=== PATIENT | male | born 1955 | race African-American/Black ===

== ENCOUNTER → 2016-10-18 | Outpatient (CLI) | payer OTHER | LOC: HYPER 06:55 | DX: I87.331 Chronic venous hypertension (idiopathic) with ulcer and inflammation of right lower extremity (principal); L97.811 Non-pressure chronic ulcer of other part of right lower leg limited to breakdown of skin; I10 Essential (primary) hypertension; I73.9 Peripheral vascular disease, unspecified; H54.41 Blindness, right eye, normal vision left eye; E11.622 Type 2 diabetes mellitus with other skin ulcer; I87.2 Venous insufficiency (chronic) (peripheral); Z79.4 Long term (current) use of insulin; Z79.84 Long term (current) use of oral hypoglycemic drugs ==

== ENCOUNTER → 2016-10-25 | Outpatient (CLI) | payer OTHER | LOC: HYPER 06:51 | DX: I87.331 Chronic venous hypertension (idiopathic) with ulcer and inflammation of right lower extremity (principal); L97.811 Non-pressure chronic ulcer of other part of right lower leg limited to breakdown of skin; E11.622 Type 2 diabetes mellitus with other skin ulcer; I87.2 Venous insufficiency (chronic) (peripheral); I70.238 Atherosclerosis of native arteries of right leg with ulceration of other part of lower leg; H54.41 Blindness, right eye, normal vision left eye; E11.51 Type 2 diabetes mellitus with diabetic peripheral angiopathy without gangrene; I10 Essential (primary) hypertension; Z79.4 Long term (current) use of insulin; Z79.84 Long term (current) use of oral hypoglycemic drugs ==

== ENCOUNTER → 2017-01-24 | Outpatient (CLI) | payer OTHER | LOC: HYPER 07:13 | DX: I87.333 Chronic venous hypertension (idiopathic) with ulcer and inflammation of bilateral lower extremity (principal); L97.821 Non-pressure chronic ulcer of other part of left lower leg limited to breakdown of skin; E11.622 Type 2 diabetes mellitus with other skin ulcer; L97.811 Non-pressure chronic ulcer of other part of right lower leg limited to breakdown of skin; I70.238 Atherosclerosis of native arteries of right leg with ulceration of other part of lower leg; I70.248 Atherosclerosis of native arteries of left leg with ulceration of other part of lower leg ==

== ENCOUNTER → 2017-02-07 | Outpatient (CLI) | payer OTHER | LOC: HYPER 07:05 | DX: I87.333 Chronic venous hypertension (idiopathic) with ulcer and inflammation of bilateral lower extremity (principal); L97.821 Non-pressure chronic ulcer of other part of left lower leg limited to breakdown of skin; L97.811 Non-pressure chronic ulcer of other part of right lower leg limited to breakdown of skin; E11.622 Type 2 diabetes mellitus with other skin ulcer; R60.0 Localized edema; I70.248 Atherosclerosis of native arteries of left leg with ulceration of other part of lower leg; I70.238 Atherosclerosis of native arteries of right leg with ulceration of other part of lower leg; H54.41 Blindness, right eye, normal vision left eye; Z68.41 Body mass index [BMI] 40.0-44.9, adult ==

== ENCOUNTER → 2017-02-16 | Outpatient (CLI) | payer OTHER | LOC: HYPER 02-14 10:20 | DX: I87.333 Chronic venous hypertension (idiopathic) with ulcer and inflammation of bilateral lower extremity (principal); L97.821 Non-pressure chronic ulcer of other part of left lower leg limited to breakdown of skin; L97.811 Non-pressure chronic ulcer of other part of right lower leg limited to breakdown of skin; E11.622 Type 2 diabetes mellitus with other skin ulcer; I70.248 Atherosclerosis of native arteries of left leg with ulceration of other part of lower leg; I70.238 Atherosclerosis of native arteries of right leg with ulceration of other part of lower leg ==

== ENCOUNTER → 2017-03-02 | Outpatient (CLI) | payer OTHER | LOC: HYPER 07:08 | DX: I87.333 Chronic venous hypertension (idiopathic) with ulcer and inflammation of bilateral lower extremity (principal); E11.622 Type 2 diabetes mellitus with other skin ulcer; L97.811 Non-pressure chronic ulcer of other part of right lower leg limited to breakdown of skin; L97.821 Non-pressure chronic ulcer of other part of left lower leg limited to breakdown of skin; R60.0 Localized edema; I70.239 Atherosclerosis of native arteries of right leg with ulceration of unspecified site; I70.249 Atherosclerosis of native arteries of left leg with ulceration of unspecified site ==

== ENCOUNTER → 2017-03-23 | Outpatient (CLI) | payer OTHER | LOC: HYPER 07:15 | DX: E11.622 Type 2 diabetes mellitus with other skin ulcer (principal); I87.333 Chronic venous hypertension (idiopathic) with ulcer and inflammation of bilateral lower extremity; I70.238 Atherosclerosis of native arteries of right leg with ulceration of other part of lower leg; I70.248 Atherosclerosis of native arteries of left leg with ulceration of other part of lower leg; L97.811 Non-pressure chronic ulcer of other part of right lower leg limited to breakdown of skin; L97.821 Non-pressure chronic ulcer of other part of left lower leg limited to breakdown of skin; R60.0 Localized edema; R60.9 Edema, unspecified ==

== ENCOUNTER → 2017-04-06 | Outpatient (CLI) | payer OTHER | LOC: HYPER 06:57 | DX: I87.332 Chronic venous hypertension (idiopathic) with ulcer and inflammation of left lower extremity (principal); E11.622 Type 2 diabetes mellitus with other skin ulcer; I70.248 Atherosclerosis of native arteries of left leg with ulceration of other part of lower leg; L97.821 Non-pressure chronic ulcer of other part of left lower leg limited to breakdown of skin; I87.2 Venous insufficiency (chronic) (peripheral); H54.41 Blindness, right eye, normal vision left eye; I10 Essential (primary) hypertension ==

== ENCOUNTER → 2017-05-04 | Outpatient (CLI) | payer OTHER | LOC: HYPER 07:04 | DX: E11.622 Type 2 diabetes mellitus with other skin ulcer (principal); L97.821 Non-pressure chronic ulcer of other part of left lower leg limited to breakdown of skin; L97.811 Non-pressure chronic ulcer of other part of right lower leg limited to breakdown of skin; I70.238 Atherosclerosis of native arteries of right leg with ulceration of other part of lower leg; I70.248 Atherosclerosis of native arteries of left leg with ulceration of other part of lower leg; I87.333 Chronic venous hypertension (idiopathic) with ulcer and inflammation of bilateral lower extremity; G89.29 Other chronic pain ==

== ENCOUNTER → 2017-05-18 | Outpatient (CLI) | payer OTHER | LOC: HYPER 07:02 | DX: I87.333 Chronic venous hypertension (idiopathic) with ulcer and inflammation of bilateral lower extremity (principal); L97.821 Non-pressure chronic ulcer of other part of left lower leg limited to breakdown of skin; L97.811 Non-pressure chronic ulcer of other part of right lower leg limited to breakdown of skin; E11.622 Type 2 diabetes mellitus with other skin ulcer; I70.248 Atherosclerosis of native arteries of left leg with ulceration of other part of lower leg; I70.238 Atherosclerosis of native arteries of right leg with ulceration of other part of lower leg; H54.41 Blindness, right eye, normal vision left eye ==

== ENCOUNTER → 2017-06-15 | Outpatient (CLI) | payer OTHER | LOC: HYPER 06-01 13:43 | DX: I87.333 Chronic venous hypertension (idiopathic) with ulcer and inflammation of bilateral lower extremity (principal); E11.622 Type 2 diabetes mellitus with other skin ulcer; L97.821 Non-pressure chronic ulcer of other part of left lower leg limited to breakdown of skin; L97.811 Non-pressure chronic ulcer of other part of right lower leg limited to breakdown of skin; R60.0 Localized edema ==

== ENCOUNTER → 2017-06-29 | Outpatient (CLI) | payer OTHER | LOC: HYPER 07:13 | DX: E11.622 Type 2 diabetes mellitus with other skin ulcer (principal); L97.821 Non-pressure chronic ulcer of other part of left lower leg limited to breakdown of skin; L97.811 Non-pressure chronic ulcer of other part of right lower leg limited to breakdown of skin; I87.333 Chronic venous hypertension (idiopathic) with ulcer and inflammation of bilateral lower extremity; I70.238 Atherosclerosis of native arteries of right leg with ulceration of other part of lower leg; I70.248 Atherosclerosis of native arteries of left leg with ulceration of other part of lower leg; H54.41 Blindness, right eye, normal vision left eye; I10 Essential (primary) hypertension ==

== ENCOUNTER → 2017-08-22 | Outpatient (CLI) | payer OTHER | LOC: HYPER 07-20 06:57 | DX: I87.333 Chronic venous hypertension (idiopathic) with ulcer and inflammation of bilateral lower extremity (principal); E11.622 Type 2 diabetes mellitus with other skin ulcer; L97.811 Non-pressure chronic ulcer of other part of right lower leg limited to breakdown of skin; L97.821 Non-pressure chronic ulcer of other part of left lower leg limited to breakdown of skin; R60.0 Localized edema ==

== ENCOUNTER → 2017-10-10 | Outpatient (CLI) | payer OTHER ==
[~2017-10-10] MED LIST: AMLACTIN400 GM TOP; AMLODIPINE BESY10 MG PO; AUGMENTIN 500-1 EACH PO; COREG25 MG PO; LOPRESSOR100 M1 PO; METFORMIN HCL1000 MG PO; MIRALAX17 GM PO; MS CONTIN 30 MG30 M1 PO; NEPHROCAPS SOFT1 CAP PO; NITROGLYCERIN0.4 MG SUBLING; PLAVIX 75 MG TA75 M1 PO; PROCRIT20000 UNIT SUBQ; PROTONIX40 M1 PO; RENVELA800 MG PO; TRI-BUFFERED A325 M1 PO
== END ==
LOC: HYPER 10-03 06:57
DX: E11.621 Type 2 diabetes mellitus with foot ulcer (principal); E11.622 Type 2 diabetes mellitus with other skin ulcer; L97.811 Non-pressure chronic ulcer of other part of right lower leg limited to breakdown of skin; L97.511 Non-pressure chronic ulcer of other part of right foot limited to breakdown of skin; L97.521 Non-pressure chronic ulcer of other part of left foot limited to breakdown of skin; I87.333 Chronic venous hypertension (idiopathic) with ulcer and inflammation of bilateral lower extremity; I70.235 Atherosclerosis of native arteries of right leg with ulceration of other part of foot; I70.238 Atherosclerosis of native arteries of right leg with ulceration of other part of lower leg; I10 Essential (primary) hypertension; H54.61 Unqualified visual loss, right eye, normal vision left eye; Z90.49 Acquired absence of other specified parts of digestive tract

== ENCOUNTER → 2017-10-24 | Outpatient (CLI) | payer OTHER | LOC: HYPER 10-17 06:51 | DX: E11.621 Type 2 diabetes mellitus with foot ulcer (principal); I87.333 Chronic venous hypertension (idiopathic) with ulcer and inflammation of bilateral lower extremity; L97.521 Non-pressure chronic ulcer of other part of left foot limited to breakdown of skin; L97.512 Non-pressure chronic ulcer of other part of right foot with fat layer exposed; E11.622 Type 2 diabetes mellitus with other skin ulcer; L97.811 Non-pressure chronic ulcer of other part of right lower leg limited to breakdown of skin; I70.238 Atherosclerosis of native arteries of right leg with ulceration of other part of lower leg; G89.29 Other chronic pain; Z79.4 Long term (current) use of insulin; Z79.84 Long term (current) use of oral hypoglycemic drugs ==

== ENCOUNTER → 2017-10-31 | Outpatient (CLI) | payer OTHER | LOC: HYPER 06:37 | DX: E11.621 Type 2 diabetes mellitus with foot ulcer (principal); L97.512 Non-pressure chronic ulcer of other part of right foot with fat layer exposed; L97.521 Non-pressure chronic ulcer of other part of left foot limited to breakdown of skin; I87.333 Chronic venous hypertension (idiopathic) with ulcer and inflammation of bilateral lower extremity; R60.0 Localized edema; Z79.4 Long term (current) use of insulin; Z79.84 Long term (current) use of oral hypoglycemic drugs ==

== ENCOUNTER → 2017-11-07 | Outpatient (CLI) | payer OTHER | LOC: HYPER 06:52 | DX: E11.621 Type 2 diabetes mellitus with foot ulcer (principal); L97.521 Non-pressure chronic ulcer of other part of left foot limited to breakdown of skin; L97.512 Non-pressure chronic ulcer of other part of right foot with fat layer exposed; I87.333 Chronic venous hypertension (idiopathic) with ulcer and inflammation of bilateral lower extremity; I70.235 Atherosclerosis of native arteries of right leg with ulceration of other part of foot; I70.245 Atherosclerosis of native arteries of left leg with ulceration of other part of foot; H54.61 Unqualified visual loss, right eye, normal vision left eye; Z90.49 Acquired absence of other specified parts of digestive tract; Z79.4 Long term (current) use of insulin ==

== ENCOUNTER → 2017-11-14 | Outpatient (CLI) | payer OTHER | LOC: HYPER 06:52 | DX: I87.333 Chronic venous hypertension (idiopathic) with ulcer and inflammation of bilateral lower extremity (principal); E11.621 Type 2 diabetes mellitus with foot ulcer; L97.521 Non-pressure chronic ulcer of other part of left foot limited to breakdown of skin; L97.512 Non-pressure chronic ulcer of other part of right foot with fat layer exposed; I70.235 Atherosclerosis of native arteries of right leg with ulceration of other part of foot; I70.245 Atherosclerosis of native arteries of left leg with ulceration of other part of foot; H54.61 Unqualified visual loss, right eye, normal vision left eye; Z79.4 Long term (current) use of insulin; Z79.84 Long term (current) use of oral hypoglycemic drugs; Z90.49 Acquired absence of other specified parts of digestive tract ==

== ENCOUNTER → 2017-11-28 | Outpatient (CLI) | payer OTHER | LOC: HYPER 11-21 06:51 | DX: E11.621 Type 2 diabetes mellitus with foot ulcer (principal); L97.521 Non-pressure chronic ulcer of other part of left foot limited to breakdown of skin; L97.512 Non-pressure chronic ulcer of other part of right foot with fat layer exposed; E11.622 Type 2 diabetes mellitus with other skin ulcer; L97.821 Non-pressure chronic ulcer of other part of left lower leg limited to breakdown of skin; L97.811 Non-pressure chronic ulcer of other part of right lower leg limited to breakdown of skin; I87.313 Chronic venous hypertension (idiopathic) with ulcer of bilateral lower extremity; I70.235 Atherosclerosis of native arteries of right leg with ulceration of other part of foot; Z79.4 Long term (current) use of insulin; Z79.84 Long term (current) use of oral hypoglycemic drugs ==

== ENCOUNTER → 2017-12-06 | Outpatient (CLI) | payer OTHER | LOC: HYPER 12-05 07:10 | DX: E11.622 Type 2 diabetes mellitus with other skin ulcer (principal); I87.332 Chronic venous hypertension (idiopathic) with ulcer and inflammation of left lower extremity; L97.811 Non-pressure chronic ulcer of other part of right lower leg limited to breakdown of skin; L97.821 Non-pressure chronic ulcer of other part of left lower leg limited to breakdown of skin; R60.0 Localized edema; Z79.4 Long term (current) use of insulin; Z79.84 Long term (current) use of oral hypoglycemic drugs ==

== ENCOUNTER → 2017-12-19 | Outpatient (CLI) | payer OTHER | LOC: HYPER 12-12 06:51 | DX: E11.621 Type 2 diabetes mellitus with foot ulcer (principal); I87.313 Chronic venous hypertension (idiopathic) with ulcer of bilateral lower extremity; L97.521 Non-pressure chronic ulcer of other part of left foot limited to breakdown of skin; L97.512 Non-pressure chronic ulcer of other part of right foot with fat layer exposed; I70.235 Atherosclerosis of native arteries of right leg with ulceration of other part of foot; Z79.4 Long term (current) use of insulin; Z79.84 Long term (current) use of oral hypoglycemic drugs ==

== ENCOUNTER 2018-03-07 07:04 | Inpatient (IN) | payer OTHER ==
[~2018-03-07] VITALS: Ht 177.8 cm; Wt 122.5 kg
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
--- NOTE | ~2018-03-07 | HC ---
[facility] [place] [address] CONSULTATION Name: TERE WOOD Room #: 416-P ADM IN M.R.#: [id number] Admission: 03/07/18 Attend Phys: Lul Rhodes MD Discharge: Date of : 55 Report #: [id number] THIS REPORT FOR: //name// CC: Lul Wilkersonnetmariposa Ruiz Fadi Julian DATE OF SERVICE: 03/08/2018 CHIEF COMPLAINT: New onset pressure ulceration to the left heel with wound infection. HISTORY OF PRESENT ILLNESS: This is a 62-year-old male patient whom we have seen in the past for ongoing wound care. 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 He presented to the wound clinic yesterday with some chills and odor and drainage to the left heel. It was appeared to be infected. We unroofed some of the eschar that was moist and draining releasing a moderate amount of purulent material. He is noted to have significant peripheral arterial disease and due to the severity of the infection and the severity of his peripheral artery disease, he is admitted to the hospital for ongoing treatment and evaluation. He has undergone angiography at this point. He has undergone left superficial femoral artery atherectomy and stent placement, secondary thrombectomy, left superficial femoral artery and drug-coated balloon angioplasty and atherectomy of left popliteal artery. The patient denies pain at this point in time and is about to begin dialysis. PAST MEDICAL HISTORY: Significant for hypertension, hyperlipidemia, type 2 diabetes mellitus, severe peripheral arterial disease, end-stage renal disease, on hemodialysis. ALLERGIES: None. MEDICATIONS: Include metoprolol, Renvela, MS Contin, Coreg, metformin, amlodipine, pantoprazole. SOCIAL HISTORY: Negative for alcohol or tobacco use. FAMILY HISTORY: Noncontributory. REVIEW OF SYSTEMS: CONSTITUTIONAL: The patient denies fever, chills or weight loss. ENT: The patient denies earache, nasal drainage or sore throat. EYES: The patient denies visual changes, redness or drainage. PULMONARY: The patient denies cough or shortness of breath. GASTROINTESTINAL: The patient denies nausea, vomiting, diarrhea or abdominal [facility] [address] [place] [address] CONSULTATION Name: TERE WOOD Room #: 416-P [facility] IN [facility].#: [id number] Admission: 03/07/18 Attend Phys: Lul Rhodes MD Discharge: Date of : 55 Report #: [id number] pain. ORTHOPEDIC: The patient notes the ulceration drainage from his heel. Other systems in a 14-point review of systems are negative. PHYSICAL EXAMINATION: VITAL SIGNS: At this time include pulse rate 86, respiratory rate of 16, blood pressure 149/62, temperature 98.1. GENERAL: This is a chronically ill-appearing male patient who appears to be in minimal distress. HEENT: Head normocephalic. Nose and throat clear. NECK: Supple. LUNGS: Clear. HEART: Regular rate and rhythm. ABDOMEN: Soft. Bowel sounds present. EXTREMITIES: Demonstrate diminished distal pulses. He has somewhat malodorous left heel ulcer, although it appears to be somewhat improved since yesterday, it still covered with yellow fibrinous material. NEUROLOGIC: The patient is alert, moving all 4 extremities spontaneously. LABORATORY DATA: Includes sodium 134, potassium 3.5, CO2 of 29, BUN 10, creatinine 4.1, glucose 144. White blood cell count 7.1 with a hemoglobin of 7.4, hematocrit of 23.9. Sed rate is 85. CLINICAL IMPRESSION: 1. A pressure ulceration to the left heel, complicated by diabetes and severe peripheral arterial disease. 2. Severe peripheral arterial disease, status post percutaneous intervention as detailed above. 3. End-stage renal disease, on dialysis. 4. Diabetes mellitus with hyperglycemia. RECOMMENDATIONS: At this point in time, we will recommend a quarter strength Dakin's moist gauze dressing to be applied to the heel b.i.d. He will likely require additional debridement of the heel. Hopefully with the revascularization procedure, he will have enough flow to heal this area. We will continue on antibiotic for now. Prevalon boots while in bed, nutritional support to maintain optimal wound healing. All questions have been answered. I appreciate being asked to see the patient in consultation. <ELECTRONICALLY SIGNED> By: Lul Rhodes MD 03/09/18 1131 50 24 Lul Rhodes MD /nt
[2018-03-07 14:23] LABS: HEMATOCRIT 25.1 % (42.0-52.0); HEMOGLOBIN 7.8 gm/dL (14.0-18.0); MCH 23.6 pg (26.0-34.0); MCHC 31.1 g/dL (28.0-37.0); MCV 75.8 fL (80.0-100.0); RBC 3.31 mil/uL (4.50-6.00); RDW 15.9 % (10.5-14.5); WBC 7.9 thou/uL (4.0-11.0)
[2018-03-07 14:30] LABS: CALCIUM 8.6 mg/dL (8.5-10.1); CREATININE 3.7 mg/dL (0.7-1.3); POTASSIUM 3.6 mmol/L (3.5-5.1)
[2018-03-07 14:34] LABS: ALBUMIN 2.8 g/dL (3.4-5.0); PHOSPHORUS 2.3 mg/dL (2.5-4.9)
[2018-03-07] MEDS ORDERED: LOPRESSOR100 M1 PO (14:38)
[2018-03-07] MEDS ORDERED: RENVELA800 MG PO (14:38)
[2018-03-07] MEDS ORDERED: MS CONTIN 30 MG30 M1 PO (14:40)
[2018-03-07] MEDS ORDERED: COREG25 MG PO (14:41)
[2018-03-07] MEDS ORDERED: METFORMIN HCL1000 MG PO (14:41)
[2018-03-07] MEDS ORDERED: AMLODIPINE BESY10 MG PO (14:42)
[2018-03-07] MEDS ORDERED: PROTONIX40 M1 PO (14:44)
[2018-03-07 16:35] VITALS: BP 174/74
[2018-03-07 20:00] VITALS: BP 160/64
[2018-03-08 04:00] VITALS: BP 142/77
[2018-03-08 06:57] LABS: HEMATOCRIT 23.9 % (42.0-52.0); HEMOGLOBIN 7.4 gm/dL (14.0-18.0); MCH 23.4 pg (26.0-34.0); MCHC 30.8 g/dL (28.0-37.0); RBC 3.15 mil/uL (4.50-6.00); RDW 15.6 % (10.5-14.5); WBC 7.1 thou/uL (4.0-11.0)
[2018-03-08 07:09] LABS: ALBUMIN 2.5 g/dL (3.4-5.0); CALCIUM 8.7 mg/dL (8.5-10.1); CREATININE 4.1 mg/dL (0.7-1.3); PHOSPHORUS 3.1 mg/dL (2.5-4.9); POTASSIUM 3.5 mmol/L (3.5-5.1)
[2018-03-08 08:16] VITALS: BP 169/64
[2018-03-08 10:08] LABS: % SATURATION 14 % (20-39); IRON 29 ug/dL (65-175); TIBC 203 ug/dL (250-450)
[2018-03-08 20:01] VITALS: BP 149/62
[2018-03-09 05:58] VITALS: BP 141/80
[2018-03-09 07:20] VITALS: BP 159/84
[2018-03-09 08:40] LABS: HEMATOCRIT 23.7 % (42.0-52.0); HEMOGLOBIN 7.5 gm/dL (14.0-18.0); MCH 24.1 pg (26.0-34.0); MCHC 31.8 g/dL (28.0-37.0); MCV 75.7 fL (80.0-100.0); RBC 3.12 mil/uL (4.50-6.00); RDW 16.2 % (10.5-14.5); WBC 6.8 thou/uL (4.0-11.0)
[2018-03-09 08:54] LABS: ALBUMIN 2.4 g/dL (3.4-5.0); CALCIUM 8.5 mg/dL (8.5-10.1); CREATININE 3.2 mg/dL (0.7-1.3); PHOSPHORUS 2.7 mg/dL (2.5-4.9); POTASSIUM 3.7 mmol/L (3.5-5.1)
[2018-03-09 17:09] LABS: HEP B SURFACE Ab(ANTI-HBS Non Reactive (()); HEPATITIS B SURFACE AG Negative (Negative)
[2018-03-09 20:01] VITALS: BP 96/55
[2018-03-09 22:16] VITALS: BP 122/80
[2018-03-10 04:03] VITALS: BP 133/68
[2018-03-10 08:30] VITALS: BP 137/77
[2018-03-10 20:25] VITALS: BP 127/63
[2018-03-11 05:08] VITALS: BP 149/73
[2018-03-11 08:09] VITALS: BP 150/80
[2018-03-11 16:07] VITALS: BP 121/76
[2018-03-11 19:46] VITALS: BP 148/88
[2018-03-12 04:57] VITALS: BP 143/72
[2018-03-12 05:52] LABS: HEMOGLOBIN 6.7 gm/dL (14.0-18.0)
[2018-03-12 05:55] LABS: HEMATOCRIT 21.7 % (42.0-52.0); MCH 23.8 pg (26.0-34.0); MCHC 30.8 g/dL (28.0-37.0); MCV 77.4 fL (80.0-100.0); RBC 2.81 mil/uL (4.50-6.00); RDW 16.1 % (10.5-14.5); WBC 6.9 thou/uL (4.0-11.0)
[2018-03-12 06:10] LABS: CALCIUM 7.9 mg/dL (8.5-10.1); POTASSIUM 3.6 mmol/L (3.5-5.1)
[2018-03-12 06:16] LABS: CREATININE 4.5 mg/dL (0.7-1.3)
[2018-03-12 07:58] VITALS: BP 141/68
[2018-03-12 16:23] VITALS: BP 112/55
[2018-03-12] MEDS ORDERED: NEPHROCAPS SOFT1 CAP PO (16:27)
[2018-03-12] MEDS ORDERED: PLAVIX 75 MG TA75 M1 PO (16:27)
[2018-03-12] MEDS ORDERED: TRI-BUFFERED A325 M1 PO (16:27)
[2018-03-12] MEDS ORDERED: MIRALAX17 GM PO (16:27)
[2018-03-12] MEDS ORDERED: AMLACTIN400 GM TOP (16:27)
[2018-03-12] MEDS ORDERED: PROCRIT20000 UNIT SUBQ (16:27)
[2018-03-12 17:06] VITALS: BP 112/55
[2018-03-12 19:25] VITALS: BP 112/55
[2018-03-13] MEDS ORDERED: AUGMENTIN 500-1 EACH PO (11:03)
== END 2018-03-12 19:52 | disposition home health service (06) | DRG 252 ==
LOC: HYPER 07:04 → 4N 12:52
PROVIDERS: Hospitalist; Internal Medicine Nephrology
DX: E11.51 Type 2 diabetes mellitus with diabetic peripheral angiopathy without gangrene (principal); N18.6 End stage renal disease; L03.116 Cellulitis of left lower limb; I12.0 Hypertensive chronic kidney disease with stage 5 chronic kidney disease or end stage renal disease; L89.629 Pressure ulcer of left heel, unspecified stage; E11.42 Type 2 diabetes mellitus with diabetic polyneuropathy; E11.621 Type 2 diabetes mellitus with foot ulcer; E11.22 Type 2 diabetes mellitus with diabetic chronic kidney disease; M06.9 Rheumatoid arthritis, unspecified; E11.319 Type 2 diabetes mellitus with unspecified diabetic retinopathy without macular edema; E11.65 Type 2 diabetes mellitus with hyperglycemia; E78.5 Hyperlipidemia, unspecified; G89.29 Other chronic pain; D64.9 Anemia, unspecified; I87.2 Venous insufficiency (chronic) (peripheral); Z90.49 Acquired absence of other specified parts of digestive tract; Z83.3 Family history of diabetes mellitus; Z82.49 Family history of ischemic heart disease and other diseases of the circulatory system; Z99.2 Dependence on renal dialysis
CPT/HCPCS: 10790; 32100

== ENCOUNTER → 2018-03-26 | Outpatient (CLI) | payer OTHER ==
[~2018-03-26] MED LIST changes: -NITROGLYCERIN0.4 MG SUBLING
== END ==
LOC: HYPER 07:11
DX: E11.621 Type 2 diabetes mellitus with foot ulcer (principal); L89.620 Pressure ulcer of left heel, unstageable; L97.421 Non-pressure chronic ulcer of left heel and midfoot limited to breakdown of skin; E11.622 Type 2 diabetes mellitus with other skin ulcer; I70.234 Atherosclerosis of native arteries of right leg with ulceration of heel and midfoot; L97.411 Non-pressure chronic ulcer of right heel and midfoot limited to breakdown of skin; I87.2 Venous insufficiency (chronic) (peripheral); E11.22 Type 2 diabetes mellitus with diabetic chronic kidney disease; I12.0 Hypertensive chronic kidney disease with stage 5 chronic kidney disease or end stage renal disease; N18.5 Chronic kidney disease, stage 5; G89.29 Other chronic pain; Z79.4 Long term (current) use of insulin; Z79.84 Long term (current) use of oral hypoglycemic drugs; Z68.41 Body mass index [BMI] 40.0-44.9, adult

== ENCOUNTER → 2018-04-09 | Outpatient (CLI) | payer OTHER | LOC: HYPER 06:52 | DX: E11.621 Type 2 diabetes mellitus with foot ulcer (principal); L89.620 Pressure ulcer of left heel, unstageable; I70.244 Atherosclerosis of native arteries of left leg with ulceration of heel and midfoot; L97.421 Non-pressure chronic ulcer of left heel and midfoot limited to breakdown of skin; E11.22 Type 2 diabetes mellitus with diabetic chronic kidney disease; I12.0 Hypertensive chronic kidney disease with stage 5 chronic kidney disease or end stage renal disease; N18.5 Chronic kidney disease, stage 5; Z79.4 Long term (current) use of insulin; Z79.84 Long term (current) use of oral hypoglycemic drugs ==

== ENCOUNTER → 2018-05-02 | Outpatient (CLI) | payer OTHER ==
[~2018-05-02] VITALS: Ht 177.8 cm; Wt 118.9 kg
[~2018-05-02] MED LIST changes: +NITROGLYCERIN0.4 MG SUBLING
[2018-05-02 11:32] VITALS: BP 165/74
[2018-05-02 13:03] LABS: ABSOLUTE NEUTROPHILS 3.7 thou/uL (1.4-8.2); EOSINOPHILS 7.5 % (0.0-3.0); HEMATOCRIT 32.3 % (42.0-52.0); HEMOGLOBIN 9.8 gm/dL (14.0-18.0); LYMPHOCYTES 26.3 % (24.0-44.0); MCH 23.5 pg (26.0-34.0); MCHC 30.3 g/dL (28.0-37.0); MCV 77.5 fL (80.0-100.0); MONOCYTES 6.7 % (1.0-8.0); PLATELET COUNT 383 thou/uL (150-400); POLYS 58.5 % (36.0-66.0); RBC 4.17 mil/uL (4.50-6.00); RDW 18.2 % (10.5-14.5); WBC 6.3 thou/uL (4.0-11.0)
[2018-05-02 13:24] LABS: ANISOCYTOSIS 1+; PLATELET ESTIMATE NORMAL
[2018-05-02 13:37] LABS: ALBUMIN 2.5 g/dL (3.4-5.0); ANION GAP 9 mmol/L (7-16); BUN 22 mg/dL (7-18); CALCIUM 7.4 mg/dL (8.5-10.1); CHLORIDE 100 mmol/L (98-107); CHOLESTEROL 68 mg/dL (<200); CO2 26 mmol/L (21-32); CREATININE 4.6 mg/dL (0.7-1.3); GLUCOSE 137 mg/dL (74-106); HDL CHOLESTEROL 47 mg/dL (>40); LDL CHOLESTEROL 11 mg/dL (<100); MAGNESIUM 1.6 mg/dL (1.8-2.4); PHOSPHORUS 4.5 mg/dL (2.5-4.9); POTASSIUM 4.1 mmol/L (3.5-5.1); SGOT 12 U/L (15-37); SGPT 10 U/L (30-65); SODIUM 135 mmol/L (136-145); TC:HDL 1.4 Ratio (Not establshd); TOTAL BILIRUBIN 0.2 mg/dL (<0.1-1.0); TOTAL PROTEIN 7.7 g/dL (6.4-8.2); TRIGLYCERIDE 53 mg/dL (<150); VLDL 11 mg/dL (<40)
[2018-05-02 13:38] LABS: % SATURATION 18 % (20-39); IRON 34 ug/dL (65-175); TIBC 193 ug/dL (250-450)
[2018-05-02 14:10] LABS: TSH 1.12 uIU/mL (0.358-3.740)
[2018-05-03 01:06] LABS: GLYCOHEMOGLOBIN (HGB A1C) 5.6 % (4.8-5.6)
== END ==
LOC: SEN 04-25 09:43
PROVIDERS: Nurse Practitioner Family
DX: Z09 Encounter for follow-up examination after completed treatment for conditions other than malignant neoplasm (principal); M54.5 Low back pain; G89.29 Other chronic pain; I10 Essential (primary) hypertension; E11.9 Type 2 diabetes mellitus without complications; Z79.899 Other long term (current) drug therapy

== ENCOUNTER → 2018-05-07 | Outpatient (CLI) | payer OTHER | LOC: HYPER 06:36 | DX: E11.621 Type 2 diabetes mellitus with foot ulcer (principal); L89.623 Pressure ulcer of left heel, stage 3; L97.421 Non-pressure chronic ulcer of left heel and midfoot limited to breakdown of skin; I87.2 Venous insufficiency (chronic) (peripheral); E11.22 Type 2 diabetes mellitus with diabetic chronic kidney disease; I12.0 Hypertensive chronic kidney disease with stage 5 chronic kidney disease or end stage renal disease; N18.5 Chronic kidney disease, stage 5; Z79.4 Long term (current) use of insulin; Z79.84 Long term (current) use of oral hypoglycemic drugs ==

== ENCOUNTER → 2018-07-06 | Outpatient (CLI) | payer OTHER | LOC: HYPER 07:56 | DX: E11.621 Type 2 diabetes mellitus with foot ulcer (principal); L89.623 Pressure ulcer of left heel, stage 3; L97.421 Non-pressure chronic ulcer of left heel and midfoot limited to breakdown of skin; I70.244 Atherosclerosis of native arteries of left leg with ulceration of heel and midfoot; E11.51 Type 2 diabetes mellitus with diabetic peripheral angiopathy without gangrene; E11.22 Type 2 diabetes mellitus with diabetic chronic kidney disease; N18.5 Chronic kidney disease, stage 5; H54.3 Unqualified visual loss, both eyes; I10 Essential (primary) hypertension; K21.9 Gastro-esophageal reflux disease without esophagitis; M54.5 Low back pain; R60.0 Localized edema; Z79.4 Long term (current) use of insulin; Z79.84 Long term (current) use of oral hypoglycemic drugs ==

== ENCOUNTER → 2018-07-13 | Outpatient (CLI) | payer OTHER | LOC: HYPER 08:10 | DX: E11.621 Type 2 diabetes mellitus with foot ulcer (principal); L97.421 Non-pressure chronic ulcer of left heel and midfoot limited to breakdown of skin; L89.623 Pressure ulcer of left heel, stage 3; I70.292 Other atherosclerosis of native arteries of extremities, left leg; E11.51 Type 2 diabetes mellitus with diabetic peripheral angiopathy without gangrene; E11.22 Type 2 diabetes mellitus with diabetic chronic kidney disease; I12.0 Hypertensive chronic kidney disease with stage 5 chronic kidney disease or end stage renal disease; N18.5 Chronic kidney disease, stage 5; H54.3 Unqualified visual loss, both eyes; Z79.4 Long term (current) use of insulin; Z79.84 Long term (current) use of oral hypoglycemic drugs ==

== ENCOUNTER → 2018-07-27 | Outpatient (CLI) | payer OTHER | LOC: HYPER 08:06 | DX: E11.621 Type 2 diabetes mellitus with foot ulcer (principal); L89.623 Pressure ulcer of left heel, stage 3; I70.244 Atherosclerosis of native arteries of left leg with ulceration of heel and midfoot; L97.421 Non-pressure chronic ulcer of left heel and midfoot limited to breakdown of skin; E11.51 Type 2 diabetes mellitus with diabetic peripheral angiopathy without gangrene; E11.22 Type 2 diabetes mellitus with diabetic chronic kidney disease; I12.0 Hypertensive chronic kidney disease with stage 5 chronic kidney disease or end stage renal disease; N18.5 Chronic kidney disease, stage 5; K21.9 Gastro-esophageal reflux disease without esophagitis; Z79.4 Long term (current) use of insulin; Z79.84 Long term (current) use of oral hypoglycemic drugs ==

== ENCOUNTER → 2018-08-03 | Outpatient (CLI) | payer OTHER | LOC: HYPER 08:55 | DX: E11.621 Type 2 diabetes mellitus with foot ulcer (principal); I70.244 Atherosclerosis of native arteries of left leg with ulceration of heel and midfoot; L97.421 Non-pressure chronic ulcer of left heel and midfoot limited to breakdown of skin; E11.51 Type 2 diabetes mellitus with diabetic peripheral angiopathy without gangrene; E11.22 Type 2 diabetes mellitus with diabetic chronic kidney disease; N18.5 Chronic kidney disease, stage 5; H54.61 Unqualified visual loss, right eye, normal vision left eye; I10 Essential (primary) hypertension; K21.9 Gastro-esophageal reflux disease without esophagitis; M54.5 Low back pain; Z79.4 Long term (current) use of insulin; Z79.84 Long term (current) use of oral hypoglycemic drugs ==

== ENCOUNTER → 2018-08-17 | Outpatient (CLI) | payer OTHER | LOC: HYPER 07-20 07:55 | DX: E11.621 Type 2 diabetes mellitus with foot ulcer (principal); I70.244 Atherosclerosis of native arteries of left leg with ulceration of heel and midfoot; L89.623 Pressure ulcer of left heel, stage 3; L97.421 Non-pressure chronic ulcer of left heel and midfoot limited to breakdown of skin; E11.22 Type 2 diabetes mellitus with diabetic chronic kidney disease; I12.0 Hypertensive chronic kidney disease with stage 5 chronic kidney disease or end stage renal disease; N18.5 Chronic kidney disease, stage 5; E11.51 Type 2 diabetes mellitus with diabetic peripheral angiopathy without gangrene; H54.40 Blindness, one eye, unspecified eye; K21.9 Gastro-esophageal reflux disease without esophagitis; Z79.4 Long term (current) use of insulin; Z79.84 Long term (current) use of oral hypoglycemic drugs ==

== ENCOUNTER → 2018-08-31 | Outpatient (CLI) | payer OTHER | LOC: HYPER 07:43 | DX: E11.621 Type 2 diabetes mellitus with foot ulcer (principal); I70.244 Atherosclerosis of native arteries of left leg with ulceration of heel and midfoot; L89.623 Pressure ulcer of left heel, stage 3; L97.421 Non-pressure chronic ulcer of left heel and midfoot limited to breakdown of skin; E11.51 Type 2 diabetes mellitus with diabetic peripheral angiopathy without gangrene; E11.22 Type 2 diabetes mellitus with diabetic chronic kidney disease; N18.5 Chronic kidney disease, stage 5; H54.40 Blindness, one eye, unspecified eye; I10 Essential (primary) hypertension; I87.2 Venous insufficiency (chronic) (peripheral); K21.9 Gastro-esophageal reflux disease without esophagitis; Z79.4 Long term (current) use of insulin; Z79.84 Long term (current) use of oral hypoglycemic drugs ==

== ENCOUNTER → 2018-09-07 | Outpatient (CLI) | payer OTHER | LOC: HYPER 08:07 | DX: E11.622 Type 2 diabetes mellitus with other skin ulcer (principal); L97.421 Non-pressure chronic ulcer of left heel and midfoot limited to breakdown of skin; L89.623 Pressure ulcer of left heel, stage 3; E11.22 Type 2 diabetes mellitus with diabetic chronic kidney disease; I12.0 Hypertensive chronic kidney disease with stage 5 chronic kidney disease or end stage renal disease; N18.5 Chronic kidney disease, stage 5; E11.51 Type 2 diabetes mellitus with diabetic peripheral angiopathy without gangrene; I70.292 Other atherosclerosis of native arteries of extremities, left leg; H54.40 Blindness, one eye, unspecified eye; I87.2 Venous insufficiency (chronic) (peripheral); K21.9 Gastro-esophageal reflux disease without esophagitis; Z79.4 Long term (current) use of insulin; Z79.84 Long term (current) use of oral hypoglycemic drugs ==

== ENCOUNTER → 2018-09-21 | Outpatient (CLI) | payer OTHER | LOC: HYPER 07:45 | DX: E11.621 Type 2 diabetes mellitus with foot ulcer (principal); L89.623 Pressure ulcer of left heel, stage 3; L97.421 Non-pressure chronic ulcer of left heel and midfoot limited to breakdown of skin; E11.22 Type 2 diabetes mellitus with diabetic chronic kidney disease; I12.0 Hypertensive chronic kidney disease with stage 5 chronic kidney disease or end stage renal disease; N18.5 Chronic kidney disease, stage 5; E11.51 Type 2 diabetes mellitus with diabetic peripheral angiopathy without gangrene; H54.40 Blindness, one eye, unspecified eye; I70.292 Other atherosclerosis of native arteries of extremities, left leg; K21.9 Gastro-esophageal reflux disease without esophagitis; Z79.4 Long term (current) use of insulin; Z79.84 Long term (current) use of oral hypoglycemic drugs ==

== ENCOUNTER → 2019-05-16 | Outpatient (CLI) | payer OTHER | LOC: HYPER 06:39 | DX: S30.860D Insect bite (nonvenomous) of lower back and pelvis, subsequent encounter (principal); L03.312 Cellulitis of back [any part except buttock and flank]; L03.212 Acute lymphangitis of face; I10 Essential (primary) hypertension; H54.40 Blindness, one eye, unspecified eye; I87.2 Venous insufficiency (chronic) (peripheral); M54.9 Dorsalgia, unspecified; G89.29 Other chronic pain; Z99.2 Dependence on renal dialysis; Z99.3 Dependence on wheelchair; Z79.01 Long term (current) use of anticoagulants; Z79.84 Long term (current) use of oral hypoglycemic drugs; W57.XXXD Bitten or stung by nonvenomous insect and other nonvenomous arthropods, subsequent encounter ==